=== PATIENT | male | born 1940 | race African-American/Black ===

== ENCOUNTER → 2016-03-20 | Outpatient (REF) | payer MEDICARE, MEDICAID ==
[~2016-03-20] MED LIST: /PRAV20TA PO; /TAMS4CA PO; ASPI325T PO; DOCU100T PO; MULTCAP PO; NADO20TA2 PO; SULF1POW PO; ZYPR10TA PO; [UNRECOGNIZED DRUG - REMARK]
== END ==
LOC: M LAB REF 14:17
PROVIDERS: ATTEND Internal Medicine Medical Oncology
DX: C61 Malignant neoplasm of prostate (principal)